=== PATIENT | female | born 1970 | race Caucasian/White ===

== ENCOUNTER 2016-07-05 12:01 | Outpatient (CLI) | END 2016-07-05 12:02 | disposition home or self-care (01) ==

== ENCOUNTER 2016-08-14 08:00 | Outpatient (CLI) | payer OTHER | END 2016-08-14 08:01 | disposition home or self-care (01) | DX: Z11.3 Encounter for screening for infections with a predominantly sexual mode of transmission (principal) ==

== ENCOUNTER 2016-10-04 19:41 | Outpatient (CLI) | payer OTHER ==
--- NOTE | 2016-10-05 12:48 | XRAY Report ---
SACRUM AND COCCYX: 10/04/2016 CLINICAL HISTORY: Pain. FINDINGS: BONES: Normal. No fractures or osseous lesions. JOINTS: Normal. The sacroiliac joints and visualized hips are in normal alignment. SOFT TISSUES: Normal. No swelling or radiopaque foreign body. IMPRESSION: NORMAL SACRUM AND COCCYX RADIOGRAPHY. JOB #: [id number] EXT JOB #:[id number]
== END 2016-10-04 23:59 | disposition home or self-care (01) ==
LOC: DI 19:41
PROVIDERS: ATTEND Family Medicine
DX: K59.4 Anal spasm (principal)
CPT/HCPCS: 72220

== ENCOUNTER 2016-11-09 13:26 | Outpatient (CLI) | payer OTHER ==
--- NOTE | 2016-11-10 17:11 | Mammography Report ---
DIGITAL SCREENING MAMMOGRAM: 11/09/2016 CLINICAL INDICATION: A 46-year-old with family history of breast cancer for screening. History of b ilateral reduction. COMPARISON: 01/2014, 06/2012 TECHNIQUE: Routine CC and MLO projections were obtained of the breasts. FINDINGS: The breasts again demonstrate heterogeneously dense fibroglandular parenchyma bilaterally. Postoperative changes are stable. A few punctate, typically benign calcifications are present. No suspicious masses, clustered microcalcifications, or regions of architectural distortion are identif ied. IMPRESSION: BENIGN FINDINGS. RECOMMENDATION: Routine annual screening unless otherwise clinically indicated. BIRADS CATEGORY 2 - BENIGN FINDINGS. STANDARD QUALIFYING STATEMENTS 1. This examination was reviewed with the aid of Computer-Aided Detection (CAD). 2. A negative or benign imaging report should not delay biopsy if clinically suspicious findings are present. Consider surgical consultation if warranted. More than 5% of cancers are not identified by i maging. 3. Dense breasts may obscure an underlying neoplasm. JOB #: [id number] EXT JOB #:[id number]
== END 2016-11-09 13:27 | disposition home or self-care (01) ==
LOC: DI 13:26
PROVIDERS: ATTEND Obstetrics & Gynecology
DX: Z12.31 Encounter for screening mammogram for malignant neoplasm of breast (principal); Z80.3 Family history of malignant neoplasm of breast
CPT/HCPCS: 77067

== ENCOUNTER 2016-12-29 14:40 | Outpatient (CLI) | payer OTHER ==
[2016-12-29 19:14] LABS: ALBUMIN/GLOBULIN RATIO 1.3 (1.0-2.2); BILIRUBIN,TOTAL 0.9 mg/dL (0.2-1.0); CALCIUM 8.8 mg/dL (8.5-10.3); CREATININE 0.8 mg/dL (0.4-1.0); POTASSIUM 3.5 mmol/L (3.5-5.0); TOTAL PROTEIN 6.9 g/dL (6.7-8.2)
[2016-12-29 19:16] LABS: BASOPHILS % (AUTO) 0.3 %; EOSINOPHILS % (AUTO) 0.8 %; HCT - HEMATOCRIT 42.6 % (37.0-47.0); HGB - HEMOGLOBIN 14.6 g/dL (12.0-16.0); LYMPHOCYTES # (AUTO) 1.9 10^3/uL (1.5-3.5); LYMPHOCYTES % (AUTO) 34.2 %; MEAN CORPUSCULAR HEMOGLOBIN 32.8 pg (27.0-31.0); MEAN CORPUSCULAR HGB CONC 34.2 g/dL (32.0-36.0); MEAN CORPUSCULAR VOLUME 95.9 fL (81.0-99.0); MEAN PLATELET VOLUME 8.8 fL (7.9-10.8); MONOCYTES # (AUTO) 0.6 10^3/uL (0.0-1.0); MONOCYTES % (AUTO) 10.8 %; NEUTROPHILS % (AUTO) 53.9 %; NUCLEATED RED BLOOD CELLS AUTO 0.2 /100WBC; RED BLOOD COUNT 4.45 10^6/uL (4.20-5.40); RED CELL DISTRIBUTION WIDTH 13.2 % (12.0-15.0); UNCORRECTED WHITE BLOOD COUNT 5.6 x10^3/uL; WHITE BLOOD COUNT 5.6 x10^3/uL (4.8-10.8)
== END 2016-12-29 14:41 | disposition home or self-care (01) ==
LOC: LAB.WCP 14:40
PROVIDERS: ATTEND Family Medicine
DX: R19.7 Diarrhea, unspecified (principal)
CPT/HCPCS: 36415; 80053; 85025

== ENCOUNTER 2017-01-15 12:30 | Outpatient (CLI) | payer OTHER ==
--- NOTE | 2017-01-15 14:27 | MRI Report ---
EXAM: MRI PELVIS WITHOUT CONTRAST EXAM DATE: 01/15/2017 01:22 PM. CLINICAL HISTORY: Coccydynia. COMPARISON: X-ray 10/04/2016. TECHNIQUE: Multiplanar, multisequence T1-weighted and fluid-sensitive sequences of the pelvis without contrast. Other: None. FINDINGS: Bones: There is fat signal intensity in the marrow of the coccyx and fifth sacral segment. There is n o marrow edema. Surrounding soft tissues appear normal. Lower Lumbar Spine: Unremarkable. Sacroiliac Joints: No effusion or sacroiliitis. Right Hip: No acetabular retroversion. Femoral head-neck offset is within normal limits. No effusion. Left Hip: No acetabular retroversion. Femoral head-neck offset is within normal limits. No effusion. Symphysis Pubis: Unremarkable. Musculature: No edema or fatty atrophy. Pelvic Cavity: The visualized bowel, bladder, and reproductive organs are unremarkable. No lymphadeno lexi. No free fluid in the pelvis. Other: The visualized sciatic nerves are unremarkable. No bursitis. The subcutaneous tissues are unre markable. IMPRESSION: 1. Fat signal intensity in the marrow of the S5 sacral segment and coccyx, without marrow edema or gonzalez rrounding soft tissue edema. 2. No significant abnormality in the remainder of the bony pelvis. [facility] MUSCULOSKELETAL RADIOLOGY SECTION Referring Provider Line: [phone] SITE ID: [id number]
== END 2017-01-15 12:31 | disposition home or self-care (01) ==
LOC: DI 12:30
PROVIDERS: ATTEND Family Medicine
DX: M53.3 Sacrococcygeal disorders, not elsewhere classified (principal)
CPT/HCPCS: 72195

== ENCOUNTER 2017-01-23 08:00 | Outpatient (CLI) | payer OTHER | END 2017-01-23 08:01 | disposition home or self-care (01) | LOC: LAB.R 08:00 | PROVIDERS: ATTEND Obstetrics & Gynecology | DX: Z11.3 Encounter for screening for infections with a predominantly sexual mode of transmission (principal) | CPT/HCPCS: 87491; 87591 ==

== ENCOUNTER 2017-01-23 09:29 | Outpatient (CLI) | payer OTHER | END 2017-01-23 09:30 | disposition home or self-care (01) | LOC: LAB 09:29 | PROVIDERS: ATTEND Obstetrics & Gynecology | DX: Z11.3 Encounter for screening for infections with a predominantly sexual mode of transmission (principal) | CPT/HCPCS: 36415; 86780; 87389; 87491; 87591 ==

== ENCOUNTER 2017-12-13 15:09 | Outpatient (CLI) | payer OTHER ==
--- NOTE | 2017-12-14 14:54 | Mammography Report ---
Procedure Date: 12/13/2017 Accession Number: [id number] / [id number] Procedure: [facility] - Screening Mammo Dig Bilat CPT Code: FULL RESULT: EXAM: Screening Mammo Dig Bilat DATE: 12/13/2017 3:31 PM CLINICAL HISTORY: 47-year-old with personal history of bilateral reduction, family history of breast cancer for screening TECHNIQUE: Bilateral CC and MLO views were obtained. COMPARISON: 11/09/2016, 02/10/2014, 07/01/2012 FINDINGS: The breasts demonstrate heterogeneously dense fibroglandular parenchyma bilaterally. Postoperative changes are stable. No suspicious masses, clustered microcalcifications, or regions of architectural distortion are identified. IMPRESSION: Benign findings RECOMMENDATION: Routine annual screening unless otherwise clinically indicated. BIRADS CATEGORY 2: Benign findings STANDARD QUALIFYING STATEMENTS: 1. This examination was reviewed with the aid of Computer-Aided Detection (CAD). 2. A negative or benign imaging report should not delay biopsy if clinically suspicious findings are present. Consider surgical consultation if warrented. More than 5% of cancers are not identified by imaging. 3. Dense breasts may obscure an underlying neoplasm.
== END 2017-12-13 15:10 | disposition home or self-care (01) ==
LOC: DI 15:09
PROVIDERS: ATTEND Nurse Practitioner Obstetrics & Gynecology
DX: Z12.39 Encounter for other screening for malignant neoplasm of breast (principal); Z80.3 Family history of malignant neoplasm of breast
CPT/HCPCS: 77067

== ENCOUNTER 2018-08-30 14:48 | Outpatient (CLI) | payer OTHER ==
--- NOTE | 2018-08-30 16:13 | XRAY Report ---
Reason: CONTUSION OF NOSE, INITIAL ENCOUNTER Procedure Date: 08/30/2018 Accession Number: [id number] / [id number] Procedure: WCP - Nasal Bones CPT Code: FULL RESULT: EXAM: NASAL BONES RADIOGRAPHY EXAM DATE: 08/30/2018 03:05 PM. CLINICAL HISTORY: Contusion of nose, initial encounter. COMPARISONS: None. TECHNIQUE: 3 views. FINDINGS: Bones: Apparent minimally displaced fracture of the nasal bone seen on both lateral views. No significant deviation on the Wagner' view. Sinuses: Normal. No opacities or fluid levels. Other: Normal. No soft tissue swelling. IMPRESSION: Minimally displaced nasal bone fractures. [facility]
== END 2018-08-30 14:49 | disposition home or self-care (01) ==
LOC: DI.WCP 14:48
PROVIDERS: ATTEND Family Medicine
DX: S02.2XXA Fracture of nasal bones, initial encounter for closed fracture (principal)
CPT/HCPCS: 70160

== ENCOUNTER 2018-09-24 08:00 | Outpatient (CLI) | payer OTHER | END 2018-09-24 23:59 | disposition home or self-care (01) | LOC: LAB.R 08:00 | PROVIDERS: ATTEND Nurse Practitioner Obstetrics & Gynecology | DX: B37.3 Candidiasis of vulva and vagina (principal) | CPT/HCPCS: 87480; 87510; 87660 ==

== ENCOUNTER 2019-07-30 09:00 | Outpatient (CLI) | payer OTHER ==
[2019-07-30 22:09] LABS: TRICHOMONAS VAGINALIS DNA NEGATIVE (NEGATIVE)
== END 2019-07-30 23:59 | disposition home or self-care (01) ==
LOC: LAB.R 09:00
PROVIDERS: ATTEND Nurse Practitioner Obstetrics & Gynecology
DX: Z11.3 Encounter for screening for infections with a predominantly sexual mode of transmission (principal)
CPT/HCPCS: 87491; 87591; 87661

== ENCOUNTER 2020-11-02 09:23 | Emergency (ER) | payer MEDICAID, OTHER ==
[2020-11-02] MEDS ORDERED: METOCLOPRAMIDE 10 MG/2 ML VIAL IVP STA (09:40)
--- NOTE | 2020-11-02 09:43 | ED Physician Documentation ---
PD HPI HEADACHE - Stated complaint Stated Complaint: HEADACHE - Chief complaint Chief Complaint: Neuro - History obtained from History obtained from: Patient - History of Present Illness Worst headache ever?: Worst headache ever? - Additional information Additional information: 10 days ago, last Sunday she was driving to get some chicken feed and developed relatively sudden onset diffuse headache that has been persistent ever since. It is worse if she lays on her right side. It is not associated with light sensitivity, nausea, neck stiffness, or fever. She has no history of headaches or migraines. She has tried Benadryl, THC gummy without relief. No recent dietary or lifestyle changes. 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, Breast reduction - Present Medications Home Medications: Ambulatory Orders Medication Instructions Recorded Confirmed Metoclopramide [Reglan] 10 mg PO Q6H PRN #20 tablet 11/02/20 - Allergies Allergies/Adverse Reactions: Allergies Allergy/AdvReac Type Severity Reaction Status Date / Time No Known Drug Allergies Allergy Verified 11/02/20 09:26 - Social History Does the pt smoke?: No Smoking Status: Never smoker Does the pt drink ETOH?: Yes Does the pt have substance abuse?: No - Immunizations Immunizations are current?: Yes PD ED PE NORMAL - Vitals Vital signs reviewed: Yes - General General: Alert and oriented X 3, No acute distress - HEENT HEENT: PERRL, EOMI - Neck Neck: Supple, no meningeal sign, No bony TTP, No bruit - Cardiac Cardiac: RRR, No murmur - Respiratory Respiratory: No respiratory distress, Clear bilaterally - Abdomen Abdomen: Non tender - Back Back: No CVA TTP, No spinal TTP - Derm Derm: Normal color, Warm and dry - Extremities Extremities: No edema, No calf tenderness / cord - Neuro Neuro: Alert and oriented X 3, 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, No motor deficit, No sensory deficit, Normal speech Results - Vitals Vitals: Vital Signs - 24 hr 11/02/20 11/02/20 09:27 10:30 Temperature 36.4 C L 36.2 C L Heart Rate 79 60 Respiratory 18 16 Rate Blood Pressure 115/65 102/65 O2 Saturation 100 100 Oxygen O2 Source Room air - Labs Labs: Laboratory Tests 11/02/20 11/02/20 11/02/20 09:50 09:50 09:50 WBC 6.3 RBC 4.61 Hgb 15.0 Hct 44.3 MCV 96.1 MCH 32.5 H MCHC 33.9 RDW 13.2 Plt Count 231 MPV 10.4 Neut # (Auto) 3.9 Lymph # (Auto) 1.9 [place] # (Auto) 0.4 Eos # (Auto) 0.1 Baso # (Auto) 0.0 Absolute Nucleated RBC 0.00 Nucleated RBC % 0.0 PT 11.3 INR 1.0 Sodium 144 Potassium 3.7 Chloride 106 Carbon Dioxide 29 Anion Gap 9.0 BUN 22 H Creatinine 0.8 Estimated GFR (MDRD) 76 L Glucose 105 H Calcium 9.3 PD MEDICAL DECISION MAKING - ED course ED course: 50-year-old woman presents with 10 days of headache. This is a new an acute phenomenon for her. CT angiography of the head is negative for blood or aneurysm. We discussed LP, but given the lack of aneurysm and history very inconsistent with meningitis, she declined after shared decision making. She will follow up with her physician and return for new or worsening symptoms. She did have fair relief with Reglan. Departure - Departure Disposition: 01 Home, Self Care Clinical Impression: Headache Qualifiers: Headache type: unspecified Headache chronicity pattern: acute headache Intractability: not intractable Qualified Code(s): R51.9 - Headache, unspecified Condition: Good Record reviewed to determine appropriate education?: Yes Instructions: ED Cephalgia Unspecified Prescriptions: Metoclopramide [Reglan] 10 mg PO Q6H PRN #20 tablet PRN Reason: nausea or headache Comments: Call your doctor to arrange a follow-up appointment, make the next available appointment. In the interim, return anytime if worse or if new symptoms develop.
[2020-11-02] MEDS ORDERED: IOPAMIDOL-300 100 ML VIAL ONE (09:45)
[2020-11-02 09:54] LABS: BASOPHILS % (AUTO) 0.3 %; EOSINOPHILS # (AUTO) 0.1 10^3/uL (0.0-0.7); EOSINOPHILS % (AUTO) 0.8 %; HCT - HEMATOCRIT 44.3 % (37.0-47.0); LYMPHOCYTES # (AUTO) 1.9 10^3/uL (1.5-3.5); LYMPHOCYTES % (AUTO) 30.3 %; MEAN CORPUSCULAR HEMOGLOBIN 32.5 pg (27.0-31.0); MEAN CORPUSCULAR HGB CONC 33.9 g/dL (32.0-36.0); MEAN CORPUSCULAR VOLUME 96.1 fL (81.0-99.0); MEAN PLATELET VOLUME 10.4 fL (7.9-10.8); MONOCYTES # (AUTO) 0.4 10^3/uL (0.0-1.0); MONOCYTES % (AUTO) 6.5 %; NEUTROPHILS # (AUTO) 3.9 10^3/uL (1.5-6.6); NEUTROPHILS % (AUTO) 61.9 %; PLT - PLATELET COUNT 231 10^3/uL (130-450); RED BLOOD COUNT 4.61 10^6/uL (4.20-5.40); RED CELL DISTRIBUTION WIDTH 13.2 % (12.0-15.0); WHITE BLOOD COUNT 6.3 x10^3/uL (4.8-10.8)
[2020-11-02 10:01] LABS: PT - PROTHROMBIN TIME 11.3 secs (9.9-12.6)
[2020-11-02 10:05] LABS: CALCIUM 9.3 mg/dL (8.5-10.3); CREATININE 0.8 mg/dL (0.4-1.0); POTASSIUM 3.7 mmol/L (3.5-5.0)
[2020-11-02] MEDS ORDERED: SODIUM CHLORIDE 0.9% 1,000 ML IV STA (10:09)
--- NOTE | 2020-11-02 10:44 | CT Report ---
PROCEDURE: ANGIO HEAD W/WO INDICATIONS: headache, WHOL CONTRAST: IV CONTRAST: Isovue 300 ml: 80 PO CONTRAST: *NO PO CONTRAST TECHNIQUE: Precontrast 4.5 mm thick angled axial sections acquired from the foramen magnum to the vertex. Afte r the administration of intravenous contrast, 1 mm thick sections acquired through the [place] is. Postcontrast 4.5 mm thick sections then re-acquired from the foramen magnum to the vertex. 3-di mensional ysinbye-dcyvwcevk-enzqijkldt (MIP) and/or volume rendering reformats were acquired of the c entral intracranial vasculature. For radiation dose reduction, the following was used: automated ex posure control, adjustment of mA and/or kV according to patient size. COMPARISON: None FINDINGS: Image quality: Excellent. Anterior circulation: Intracranial internal carotid arteries are normal in size and flow. The flow within the paired anterior cerebral arteries is normal and symmetric. The flow within the middle cer ebral arteries is normal and symmetric. The anterior communicating artery is seen. No aneurysms are seen. Posterior circulation: Visualized portions of the vertebral arteries demonstrate normal caliber, and join to form a normal appearing basilar artery. Flow within the posterior cerebral arteries is norm al and symmetric. No aneurysms are seen. CSF spaces: Ventricles are normal in size and shape. Basal cisterns are patent. No extra-axial flu id collections. Brain: No midline shift. No intracranial bleeds or masses. Shelley-white matter interface appears int act. Skull and face: Calvarium and facial bones appear intact, without suspicious lesions. Sinuses: Apparent mucous retention cyst is partially seen within the left maxillary sinus. Visualize d sinuses and mastoids are otherwise clear. IMPRESSION: No imaging explanation is found for the patient's presenting symptoms. No masses or abnormal enhancement can be seen. No intracranial hemorrhage is seen. No significant intracranial arterial abnormalities are seen. Reviewed by: Domingo Metcalf MD on 11/02/2020 9:42 AM JAYSON Approved by: Domingo Metcalf MD on 11/02/2020 9:42 AM JAYSON Station ID: [id number]
[2020-11-02] MEDS ORDERED: IOPAMIDOL-300 100 ML VIAL IVP ONE (11:07)
[2020-11-02 11:14] VITALS: BP 110/58
== END 2020-11-02 11:12 | disposition home or self-care (01) ==
LOC: ED 09:23
DX: R51.9 Headache, unspecified (principal)
CPT/HCPCS: 36415; 70496; 80048; 85025; 85610; 96374; 99284; J2765; Q9967

== ENCOUNTER 2020-11-17 08:00 | Outpatient (CLI) | payer MEDICAID | END 2020-11-17 23:59 | disposition home or self-care (01) | LOC: LAB.WCP 08:00 | PROVIDERS: ATTEND Family Medicine | DX: R51.9 Headache, unspecified (principal) | CPT/HCPCS: 36415; 86140 ==

== ENCOUNTER 2020-12-01 08:49 | Outpatient (CLI) | payer MEDICAID ==
[2020-12-01] MEDS ORDERED: GADOBUTROL 10 MMOL/10 ML VIAL ONE ×2 (09:02→09:25)
--- NOTE | 2020-12-01 10:31 | MRI Report ---
PROCEDURE: Brain W/WO INDICATIONS: HEADACHE CONTRAST: IV CONTRAST: Gadavist ml: 6.5 TECHNIQUE: Noncontrast axial T1 spin echo, axial T2 fast spin echo, sagittal and axial FLAIR, coronal T2 fast sp in echo, axial gradient echo, axial diffusion and ADC through the brain. After the administration of contrast, axial and coronal T1 spin echo with fat saturation through the brain. COMPARISON: CT angiogram of the head 11/02/2020 FINDINGS: Image quality: Excellent. CSF spaces: Basal cisterns are patent. No extra-axial fluid collections. Ventricles are normal in size and shape. Brain: No midline shift. No intracranial bleeds or masses. No abnormal intracranial enhancement. There is cerebral volume loss for age. There is periventricular white matter chronic small vessel is chemic change. The brainstem appears normal. Diffusion-weighted images demonstrate no acute ischemi c insults. No chronic ischemic insults. Normal intravascular flow voids are present. Skull and face: Calvarial marrow is normal in signal. Orbits appear normal. Sinuses: Mucous retention cyst in the left maxillary sinus. Remaining paranasal sinuses and mastoid a ir cells are predominantly clear. IMPRESSION: Essentially unremarkable MRI of the brain. No finding to explain headache. Reviewed by: Denny Cardenas MD on 12/01/2020 10:29 AM PDT Approved by: Denny Cardenas MD on 12/01/2020 10:29 AM PDT Station ID: [id number]
[2020-12-01] MEDS: GADOBUTROL 10 MMOL/10 ML VIAL IVP ONE (16:49)
== END 2020-12-01 08:50 | disposition home or self-care (01) ==
LOC: DI 08:49
PROVIDERS: ATTEND Family Medicine
DX: R51.9 Headache, unspecified (principal)
CPT/HCPCS: 70553; A9585

== ENCOUNTER 2021-04-28 13:52 | Outpatient (CLI) | payer MEDICAID ==
--- NOTE | 2021-04-29 09:11 | Mammography Report ---
BILATERAL DIGITAL SCREENING MAMMOGRAM 3D/2D: 04/28/2021 CLINICAL: Routine screening. Comparison is made to exams dated: 12/13/2017 mammogram, 11/09/2016 mammogram, and 02/10/2014 mammogram - [facility]. The tissue of both breasts is heterogeneously dense. This may lower the sensitivity of mammography. No significant masses, calcifications, or other findings are seen in either breast. There has been no significant interval change. IMPRESSION: NEGATIVE There is no mammographic evidence of malignancy. A 1 year screening mammogram is recommended. This exam was interpreted at Station ID: [id number]. NOTE: For mammograms, a report in lay terms will be sent to the patient. Approximately 15% of breast malignancies will not be visualized mammographically. In the management of a palpable breast mass, a negative mammogram must not discourage biopsy of a clinically suspicious lesion. Electronically Signed By: Ac Posada M.D. slc/penrad:04/28/2021 17:10:17 ACR BI-RADS Category 1: Negative 3341F PARENCHYMAL PATTERN: (D) - The breast(s) demonstrate(s) heterogeneously dense fibroglandular marisel vital. BI-RADS CATEGORY: (1) - 1 RECOMMENDATION: (ANNUAL) - Recommend routine annual screening mammography. [id number] 1 year screening LATERALITY: (B)
== END 2021-04-28 13:53 | disposition home or self-care (01) ==
LOC: DI 13:52
DX: Z12.31 Encounter for screening mammogram for malignant neoplasm of breast (principal)

== ENCOUNTER 2022-03-01 09:54 | Emergency (ER) | payer MEDICAID ==
[2022-03-01 10:06] VITALS: BP 129/79
[2022-03-01 10:40] LABS: BILIRUBIN,URINE NEGATIVE (NEGATIVE); GLUCOSE, URINE (UA) NEGATIVE (NEGATIVE); KETONES,URINE (UA) NEGATIVE (NEGATIVE); LEUKOCYTE ESTERASE, URINE SMALL (NEGATIVE); NITRITE,URINE NEGATIVE (NEGATIVE); OCCULT BLOOD,URINE LARGE (NEGATIVE); PROTEIN,URINE TRACE mg/dL (NEGATIVE); UROBILINOGEN,URINE 0.2 (NORMAL) E.U./dL (NORMAL)
[2022-03-01 10:41] LABS: CLARITY,URINE HAZY (CLEAR); HCG UR QUAL NEGATIVE
[2022-03-01 10:50] LABS: BACTERIA,URINE Few /HPF (None Seen); SQUAMOUS EPITHELIAL CELL,UR MANY Squamous (<= Few); WBC,URINE >25 /HPF (0-5)
--- NOTE | 2022-03-01 11:17 | ED Physician Documentation ---
PD HPI FEMALE - Stated complaint Stated Complaint: BLOOD IN URINE - Chief complaint Chief Complaint: UTI - History obtained from History obtained from: Patient - History of Present Illness Timing - onset: Last night Timing - duration: Days (1) Timing - details: Abrupt onset, Still present Associated symptoms: Fever (subjective during the night), Back pain (left). No: Vaginal discharge, Genital sore/lesion Contributing factors: No: Exposed to STD Similar symptoms before: Diagnosis (years ago UTI) Review of Systems Constitutional: reports: Chills, Myalgias Nose: denies: Rhinorrhea / runny nose, Congestion Throat: denies: Sore throat Respiratory: denies: Cough GI: reports: Nausea. denies: Abdominal Pain, Vomiting, Diarrhea : reports: Dysuria, Frequency, Hematuria. 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, Breast reduction - Present Medications Home Medications: Ambulatory Orders Medication Instructions Recorded Confirmed Metoclopramide [Reglan] 10 mg PO Q6H PRN #20 tablet 11/02/20 Phenazopyridine HCl [Pyridium] 100 mg PO TID PRN #15 tablet 03/01/22 Sulfamethox/Trimeth 800/160 1 each PO BID #14 tablet 03/01/22 [Bactrim Ds 800/160] - Allergies Allergies/Adverse Reactions: Allergies Allergy/AdvReac Type Severity Reaction Status Date / Time No Known Drug Allergies Allergy Verified 03/01/22 10:06 - Social History Does the pt smoke?: No Smoking Status: Never smoker Does the pt drink ETOH?: Yes Does the pt have substance abuse?: No - Immunizations Immunizations are current?: Yes PD ED PE NORMAL - Vitals Vital signs reviewed: Yes - General General: Alert and oriented X 3, No acute distress, Well developed/nourished - Abdomen Abdomen: Soft, Non tender - Female Female : Deferred - Rectal Rectal: Deferred - Back Back: No spinal TTP, Other (mild left CVA tender to percussion. ) - Derm Derm: Normal color, Warm and dry, No rash Results - Vitals Vitals: Oxygen O2 Source Room air - Labs Labs: Laboratory Tests 03/01/22 10:30 Urine Color LT. YELLOW Urine Clarity HAZY Urine pH 6.0 Ur Specific [place] 1.010 Urine Protein TRACE Urine Glucose (UA) NEGATIVE Urine Ketones NEGATIVE Urine Occult Blood LARGE H Urine Nitrite NEGATIVE Urine Bilirubin NEGATIVE Urine Urobilinogen 0.2 (NORMAL) Ur Leukocyte Esterase SMALL H Urine RBC 6-10 H Urine WBC >25 H Ur Squamous Epith Cells MANY Squamous H Urine Bacteria Few Ur Microscopic Review INDICATED Urine Culture Comments NOT INDICATED Urine HCG, Qual NEGATIVE PD MEDICAL DECISION MAKING - ED course Complexity details: reviewed results, considered differential (symptoms c/w UTI. ), d/w patient Departure - Departure Disposition: Home, Self Care Clinical Impression: Urinary tract infection Condition: Stable Record reviewed to determine appropriate education?: Yes Instructions: ED UTI Cystitis Female Prescriptions: Sulfamethox/Trimeth 800/160 [Bactrim Ds 800/160] 1 each PO BID #14 tablet Phenazopyridine HCl [Pyridium] 100 mg PO TID PRN #15 tablet PRN Reason: Abdominal Pain Comments: Your urine test is consistent with the urinary tract infection. Your symptoms sound likely more than just basic bladder infection but may be getting into the upper urinary tract. Bactrim DS antibiotic twice daily for a week. Pyridium if needed for urinary discomfort. Tylenol or ibuprofen for fevers pains and aches. I would anticipate improvement over the next several days. Return if worsening discomfort, repetitive vomiting, fevers, increased pain or other concerns. I transmitted your prescriptions to the [facility] pharmacy here in [facility]. Discharge Date/Time: 03/01/22 12:17
[2022-03-01] MEDS ORDERED: ACETAMINOPHEN 325 MG TABLET PO STA (11:32)
[2022-03-01] MEDS ORDERED: PHENAZOPYRIDINE 100 MG TABLET PO STA (11:32)
[2022-03-01] MEDS ORDERED: SULFAMETH/TRIMETH DS 800/160 MG TABLET PO STA (11:32)
== END 2022-03-01 12:17 | disposition home or self-care (01) ==
LOC: ED 09:54
DX: N39.0 Urinary tract infection, site not specified (principal)
CPT/HCPCS: 81001; 81025; 99282; 99283; A9270; 81003; 87086

== ENCOUNTER 2022-04-28 16:00 | Emergency (ER) | payer MEDICAID ==
[2022-04-28 16:06] VITALS: BP 133/75
--- NOTE | 2022-04-28 16:36 | ED Physician Documentation ---
PD HPI LOWER EXT INJURY - Stated complaint Stated Complaint: FALL/LEFT FOOT INJ - Chief complaint Chief Complaint: Trauma Ext - History obtained from History obtained from: Patient - History of Present Illness PD HPI LOW EXT INJURY LOCATION: Left, Foot Type of injury: Fall Where injury occurred: Home Timing - onset: Today Timing - duration: Hours (2) Timing - details: Abrupt onset Pain level max: 7 Pain level now: 5 Improved by: Rest, Ice, Immobilization Worsened by: Moving, Palpating Associated symptoms: Swelling, Discolored (bruising). 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: Yes Does the pt have substance abuse?: No - Immunizations Immunizations are current?: Yes PD ED PE NORMAL - Vitals Vital signs reviewed: Yes - General General: Alert and oriented X 3, No acute distress - HEENT HEENT: Atraumatic, PERRL, Moist mucous membranes - Neck Neck: Supple, no meningeal sign, No bony TTP - Cardiac Cardiac: RRR - Respiratory Respiratory: No respiratory distress, Clear bilaterally - Derm Derm: Warm and dry - Extremities Extremities: Other (Left foot - No tenderness over the ankle. No tenderness over the lateral medial malleolus. There is tenderness on the dorsum of the midfoot, more on the lateral side. No tenderness at the base of the fifth metatarsal. Neurovascular intact. Otherwise normal exam) - Neuro Neuro: Alert and oriented X 3 Results - Vitals Vitals: Vital Signs - 24 hr 04/28/22 16:03 Temperature 36.8 C Heart Rate 71 Respiratory 16 Rate Blood Pressure 133/75 H O2 Saturation 98 Oxygen O2 Source Room air - Rads (name of study) Left foot x-ray Radiology: Final report received, EMP read contemporaneously, See rad report Procedures - Splint (location) L leg Splint applied by: Physician, Surendra Type of splint: Short leg, Posterior Other: Patient tolerated well, No complications, Neurovascular intact, Crutches provided PD MEDICAL DECISION MAKING - ED course Complexity details: reviewed results, considered differential, d/w patient ED course: Patient with a looks like a small avulsion fracture of the anterior aspect of the calcaneus. Placed in a short leg posterior splint. Neurovascularly intact. We will have her follow-up with orthopedics for further care. Patient counseled regarding signs and symptoms for which I believe and urgent re- evaluation would be necessary. Patient with good understanding of and agreement to plan and is comfortable going home at this time This document was made in part using voice recognition software. While efforts are made to proofread this document, sound alike and grammatical errors may occur. We will keep her nonweightbearing until she sees orthopedics. IMPRESSION: Questionable small minimally displaced fracture lateral to the anterior calcaneus. Recommend correlation for point tenderness. CT or MRI could be performed for further evaluation if indicated clinically. Departure - Departure Disposition: 01 Home, Self Care Clinical Impression: Closed avulsion fracture of calcaneus Qualifiers: Encounter type: initial encounter Calcaneus location: tuberosity Fracture alignment: displaced Laterality: left Qualified Code(s): S92.032A - Displaced avulsion fracture of tuberosity of left calcaneus, initial encounter for closed fracture Condition: Good Instructions: ED Fx Foot Follow-Up: Orthopedic Care [Provider Group] - Within 1 week Prescriptions: HYDROcod/ACETAM 5/325 [[place] 5/325] 1 - 2 ea PO Q6H PRN #10 tablet PRN Reason: Pain Comments: Your prescriptions were sent to the [facility] pharmacy. Please follow-up with orthopedics for further care. Call on Sunday for an appointment next week. Return if you worsen. I am prescribing a short course of narcotic pain medication for you. These are potentially dangerous and addictive medications that should be used carefully. These medications may constipate you. Take an jdrd-tvb-cxqalex stool softener (docusate) twice daily with plenty of water while taking these medications. If you go 24 hours without a bowel movement, take sodx-yah-ehzwcji miralax, per package instructions. Do not drink or drive while taking these medications. If you received narcotic or sedating medications while in the emergency department, do not drive for 24 hours. Store this medication in a safe, secure place and out of reach of children. It is a violation of federal law to give or sell this medication to another person or to use in a manner other than prescribed. The ED will not refill narcotic prescriptions, including prescriptions lost or stolen. To dispose of unwanted medications: 1. [facility] at [address] in [place] has a medication drop box. They accept prescription medications (in pill form) Sunday through Sunday 9:00 a.m. to 5:00 p.m. 2. The [facility] accepts prescription medications (in pill form only) for disposal year round. Call for more information. 3. Contact the [facility] for the next [facility] sponsored prescription drug collection event. , [phone], or [phone]; FINDINGS: Bones: Tiny calcification lateral to the anterior process of the calcaneus could represent a tiny minimally displaced fracture fragment. Osseous structures are otherwise intact. No suspicious bony lesions. Posterior and plantar calcaneal enthesophytes are present. Soft tissues: Very mild soft tissue edema at the lateral hindfoot. IMPRESSION: Questionable small minimally displaced fracture lateral to the anterior ca lcaneus. Recommend correlation for point tenderness. CT or MRI could be performed for further evaluation if indicated clinically. Discharge Date/Time: 04/28/22 17:00
--- NOTE | 2022-04-28 16:42 | XRAY Report ---
PROCEDURE: Foot 3 View LT INDICATIONS: Trauma TECHNIQUE: 3 views of the foot were acquired. COMPARISON: None FINDINGS: Bones: Tiny calcification lateral to the anterior process of the calcaneus could represent a tiny min imally displaced fracture fragment. Osseous structures are otherwise intact. No suspicious bony lesio ns. Posterior and plantar calcaneal enthesophytes are present. Soft tissues: Very mild soft tissue edema at the lateral hindfoot. IMPRESSION: Questionable small minimally displaced fracture lateral to the anterior calcaneus. Recommend correlat ion for point tenderness. CT or MRI could be performed for further evaluation if indicated clinically . Reviewed by: Wilfredo Muñoz MD on 04/28/2022 4:41 PM PDT Approved by: Wilfredo Muñoz MD on 04/28/2022 4:41 PM PDT Station ID: [id number]
== END 2022-04-28 17:00 | disposition home or self-care (01) ==
LOC: ED 16:00
DX: S92.032A Displaced avulsion fracture of tuberosity of left calcaneus, initial encounter for closed fracture (principal); W18.30XA Fall on same level, unspecified, initial encounter; Y92.009 Unspecified place in unspecified non-institutional (private) residence as the place of occurrence of the external cause
CPT/HCPCS: 99283; 99284

== ENCOUNTER 2022-05-11 15:10 | Outpatient (CLI) | payer MEDICAID ==
--- NOTE | 2022-05-11 15:13 | XRAY Report ---
PROCEDURE: Calcaneus LT INDICATIONS: LEFT CALCANEUS PAIN TECHNIQUE: Two views of the calcaneus were acquired. COMPARISON: X-ray foot 04/28/2020 FINDINGS: Bones: No fractures or dislocations. No suspicious bony lesions. Soft tissues: No suspicious calcifications. Achilles tendon appears normal. IMPRESSION: No visualized acute fracture or dislocation. However, occult injury cannot be excluded. Recommend reba rt interval imaging follow-up in 7-10 days as clinically indicated for additional evaluation. Reviewed by: Lori Eubanks MD on 05/11/2022 3:11 PM PST Approved by: Lori Eubanks MD on 05/11/2022 3:11 PM PST Station ID: [id number]
== END 2022-05-11 15:11 | disposition home or self-care (01) ==
LOC: DI.WOS 15:10
PROVIDERS: ATTEND Orthopaedic Surgery
DX: M79.672 Pain in left foot (principal)

== ENCOUNTER 2022-06-12 14:44 | Outpatient (CLI) | payer MEDICAID ==
--- NOTE | 2022-06-12 16:54 | XRAY Report ---
PROCEDURE: Calcaneus LT INDICATIONS: LEFT CALCANEAL FRACTURE TECHNIQUE: Two views of the calcaneus were acquired. COMPARISON: X-ray left calcaneus, 05/11/2022. X-ray left foot, 04/28 2022. FINDINGS: Bones: No no acute or healing fractures or dislocations. No suspicious bony lesions. There is a sc lerotic intramedullary lesion in the distal tibia, compatible with an bone island. Calcaneal spurring . Soft tissues: No suspicious calcifications. Achilles tendon appears normal. IMPRESSION: No fracture is identified. the X-ray of the left foot dated 05/11/2022 showed a small osseous density lateral to anterior calcaneus. If clinically indicated, x-ray of the left foot would be helpful. Reviewed by: Avinash Shah MD on 06/12/2022 4:53 PM PST Approved by: Avinash Shah MD on 06/12/2022 4:53 PM PST Station ID: [id number]
== END 2022-06-12 14:45 | disposition home or self-care (01) ==
LOC: DI.WOS 14:44
PROVIDERS: ATTEND Orthopaedic Surgery
DX: S92.055A Nondisplaced other extraarticular fracture of left calcaneus, initial encounter for closed fracture (principal)

== ENCOUNTER 2023-11-01 11:22 | Outpatient (CLI) | payer OTHER ==
--- NOTE | 2023-11-01 12:32 | XRAY Report ---
PROCEDURE: Foot 3+V LT INDICATIONS: LEFT FOOT SPRAIN TECHNIQUE: 3 views of the foot were acquired. COMPARISON: 04/20/2022. FINDINGS: Bones: No fractures or dislocations. No suspicious bony lesions. Mild hallux valgus. Plantar and d orsal calcaneal enthesophyte. Soft tissues: No tibiotalar joint effusion. Achilles tendon appears normal. IMPRESSION: No acute bony abnormality. Degenerative changes of the first MTP and calcaneus. Reviewed by: Panchito Bowman MD on 11/01/2023 12:31 PM PDT Approved by: Panchito Bowman MD on 11/01/2023 12:31 PM PDT Station ID: [id number]
== END 2023-11-01 11:23 | disposition home or self-care (01) ==
LOC: DI 11:22
PROVIDERS: ATTEND Physician Assistant Medical
DX: M19.072 Primary osteoarthritis, left ankle and foot (principal)

== ENCOUNTER 2023-12-03 10:44 | Emergency (ER) | payer MEDICAID, OTHER ==
[2023-12-03 11:37] VITALS: O2SAT 100
--- NOTE | 2023-12-03 11:51 | ED Physician Documentation ---
PD HPI WOUND RECHECK - Stated complaint Stated Complaint: RT HAND REDNESS,SWELLING - Chief complaint Chief Complaint: Wound - Histroy obtained from History obtained from: Patient - Additional information Additional information: Otherwise healthy 53-year-old has developed atraumatic right index finger pain over the last few days with progressive swelling. She did have chills last night without clear fever. 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: Hysterectomy, Breast reduction - Present Medications Home Medications: Ambulatory Orders Medication Instructions Recorded Confirmed HYDROcod/ACETAM 5/325 [[place] 5/325] 1 - 2 ea PO Q6H PRN #10 tablet 04/28/22 Fluconazole 150 mg PO ONCE PRN #1 tablet 12/03/23 Sulfamethox/Trimeth 800/160 1 each PO BID #14 tablet 12/03/23 [Bactrim Ds 800/160] cephALEXin [Keflex] 500 mg PO Q6H #28 cap 12/03/23 - Allergies Allergies/Adverse Reactions: Allergies Allergy/AdvReac Type Severity Reaction Status Date / Time No Known Drug Allergies Allergy Verified 12/03/23 11:09 - Social History Does the pt smoke?: No Smoking Status: Never smoker Does the pt drink ETOH?: Yes Does the pt have substance abuse?: No - Immunizations Immunizations are current?: Yes - POLST Patient has POLST: No PD ED PE NORMAL - Vitals Vital signs reviewed: Yes - General General: Alert and oriented X 3, No acute distress - Extremities Extremities: Other (The right index finger is swollen especially over the palmar surface over the proximal phalanx. There is no obvious abscess. Although it is swollen, she does not have tenderness along the flexor tendon sheath of the palm, and is not holding it in flexion.) - Neuro Neuro: Alert and oriented X 3, Normal speech - Psych Psych: Normal mood, Normal affect Results - Vitals Vitals: Vital Signs - 24 hr 12/03/23 11:06 Temperature 36.6 C Heart Rate 93 Respiratory 20 Rate Blood Pressure 135/84 H O2 Saturation 100 Oxygen O2 Source Room air PD Medical Decision Making - ED course ED course: I think the worry here would be for early flexor tenosynovitis. She has a swollen digit but no other [place] sign at this point. Bedside ultrasound was used with water bath step-off and there is no abscess or fluid collection to drain. We will start her on antibiotics but she was given very close return precautions. Departure - Departure Disposition: Home, Self Care Clinical Impression: Finger infection Condition: Good Record reviewed to determine appropriate education?: Yes Instructions: ED Staph Infec Abx Tx Only Prescriptions: Sulfamethox/Trimeth 800/160 [Bactrim Ds 800/160] 1 each PO BID #14 tablet Fluconazole 150 mg PO ONCE PRN #1 tablet PRN Reason: yeast infection cephALEXin [Keflex] 500 mg PO Q6H #28 cap Comments: I sent your prescriptions electronically to the [facility] pharmacy here in [place]. 1 concern would be for an early case of what is called flexor tenosynovitis. Although you do not have the classic signs of that at this point I would like you to return anytime if worse and return here for wound check in approximately 48 hours if not improving. In addition to the antibiotics I did send a single time dose of fluconazole to the pharmacy as well to be used if you do develop a yeast infection on the antibiotics.
[2023-12-03] MEDS: cephALEXin 250 MG CAPSULE PO STA (11:54)
[2023-12-03] MEDS: SULFAMETH/TRIMETH DS 800/160 MG TABLET PO STA (11:54)
[2023-12-03 12:08] VITALS: BP 129/79
== END 2023-12-03 11:57 | disposition home or self-care (01) ==
LOC: ED 10:44
DX: L08.9 Local infection of the skin and subcutaneous tissue, unspecified (principal); Z79.899 Other long term (current) drug therapy
CPT/HCPCS: 99283; A9270

== ENCOUNTER 2023-12-06 19:31 | Emergency (ER) | payer MEDICAID ==
--- NOTE | 2023-12-06 19:46 | ED Physician Documentation ---
History of Present Illness - Stated complaint Stated Complaint: ALLERGIC REACTION - Chief complaint Chief Complaint: Allergic Rx - History obtained from History obtained from: Patient - Additonal information Additional information: I saw her on Sunday for what I thought was probably an early case of flexor tenosynovitis potentially of the right second digit. She was placed on Keflex and Bactrim. From that perspective she has had significant improvement. Not completely better, but mostly so. On and off since then she has felt weird. The first day after she started antibiotics she had nausea and progressively today she feels like she has trouble swallowing with some painless swelling inside the throat but normal phonation. She feels confused like she is having word finding difficulties and feels weak and wobbly in both legs. No symptoms that are really lateralizing. 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, Breast reduction - Present Medications Home Medications: Ambulatory Orders Medication Instructions Recorded Confirmed HYDROcod/ACETAM 5/325 [[place] 5/325] 1 - 2 ea PO Q6H PRN #10 tablet 04/28/22 Fluconazole 150 mg PO ONCE PRN #1 tablet 12/03/23 Sulfamethox/Trimeth 800/160 1 each PO BID #14 tablet 12/03/23 [Bactrim Ds 800/160] cephALEXin [Keflex] 500 mg PO Q6H #28 cap 12/03/23 clindamycin HCL [Cleocin HCl] 300 mg PO QID #28 cap 12/06/23 - Allergies Allergies/Adverse Reactions: Allergies Allergy/AdvReac Type Severity Reaction Status Date / Time No Known Drug Allergies Allergy Verified 12/06/23 19:34 - Social History Does the pt smoke?: No Smoking Status: Never smoker Does the pt drink ETOH?: Yes Does the pt have substance abuse?: No - Immunizations Immunizations are current?: Yes - POLST Patient has POLST: No PD ED PE NORMAL - Vitals Vital signs reviewed: Yes - General General: Alert and oriented X 3, Other (She appears anxious, but is phonating normally.) - HEENT HEENT: PERRL, EOMI, Other (Visualized portions of the oropharynx are unremarkable.) - Neck Neck: Supple, no meningeal sign, No bony TTP - Cardiac Cardiac: RRR, No murmur - Respiratory Respiratory: No respiratory distress, Clear bilaterally - Abdomen Abdomen: Non tender - Extremities Extremities: Other (Her right second finger is significantly improved from the other day. Still a bit swollen but much less so with significant improved redness.) - Neuro Neuro: Alert and oriented X 3, sourcing specialist 2-12 intact, No motor deficit (Peripheral strength in all 4 extremities is good), No sensory deficit Eye Opening: Spontaneous Motor: Obeys Commands Verbal: Oriented GCS Score: 15 Results - Vitals Vitals: Vital Signs - 24 hr 12/06/23 12/06/23 19:34 20:42 Temperature 36.8 C Heart Rate 112 H 72 Respiratory 20 16 Rate Blood Pressure 158/97 H 126/80 O2 Saturation 100 99 Oxygen O2 Source Room air - Labs Labs: Laboratory Tests 12/06/23 12/06/23 12/06/23 19:50 19:50 19:50 WBC 6.6 RBC 4.38 Hgb 13.8 Hct 40.3 MCV 92.0 MCH 31.5 H MCHC 34.2 RDW 12.9 Plt Count 282 MPV 10.2 Neut # (Auto) 4.1 Lymph # (Auto) 2.0 [place] # (Auto) 0.4 Eos # (Auto) 0.1 Baso # (Auto) 0.0 Absolute Nucleated RBC 0.00 Nucleated RBC % 0.0 VBG pH 7.480 H VBG pCO2 34.4 L VBG pO2 25.2 VBG HCO3 25.0 VBG Total CO2 26.1 VBG O2 Saturation 57.0 L VBG Base Excess 2.0 Sodium 137 Potassium 3.5 Chloride 101 Carbon Dioxide 26 Anion Gap 10.0 BUN 18 Creatinine 0.9 Estimated GFR (MDRD) 66 L Glucose 135 H Calcium 9.9 Total Bilirubin 0.5 AST 16 ALT 15 Alkaline Phosphatase 63 Total Protein 6.9 Albumin 4.6 Globulin 2.3 Albumin/Globulin Ratio 2.0 - Rads (name of study) CT and CT angiography of the head were negative save a cyst in the left maxillary sinus which the patient was already aware of. Relevant Findings:: Final report received, EMP independent interpretation of test PD Medical Decision Making - ED course Complexity details: reviewed results (CBC/VBG/CMP- nml expect resp alk c/w anxiety and mod hyperglycemia) ED course: She presents with nonspecific symptoms after starting keflex/bactrim for finger infection. She appears anxious but otherwise her exam is normal with NIHSS zero. Would be atypical for allergic rxn, but considered. Neuro issue also considered. 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 Given timecourse would presume med side effect and change to clind, she still needs abx, finger improved but not resolved. Departure - Departure Disposition: Home, Self Care Clinical Impression: Medication side effect, Weakness Condition: Good Record reviewed to determine appropriate education?: Yes Prescriptions: clindamycin HCL [Cleocin HCl] 300 mg PO QID #28 cap Comments: It is not completely clear what caused your symptoms tonight, given the time course 1 would presume it was one of the antibiotics, more likely the Bactrim than the cephalexin. That said reasonable to stop both and substitute the clindamycin, your finger is better but I still think you need to be on some antibiotics. Do not drink or drive tonight and take it easy tomorrow. Presume your symptoms will go away over the next day or so. Return in that timeframe if not improving. Anytime if worse. Forms: PCP List Discharge Date/Time: 12/06/23 22:35
[2023-12-06 19:54] LABS: BASOPHILS % (AUTO) 0.3 %; EOSINOPHILS # (AUTO) 0.1 10^3/uL (0.0-0.7); EOSINOPHILS % (AUTO) 0.9 %; HCT - HEMATOCRIT 40.3 % (37.0-47.0); HGB - HEMOGLOBIN 13.8 g/dL (12.0-16.0); LYMPHOCYTES % (AUTO) 30.3 %; MEAN CORPUSCULAR HEMOGLOBIN 31.5 pg (27.0-31.0); MEAN CORPUSCULAR HGB CONC 34.2 g/dL (32.0-36.0); MEAN PLATELET VOLUME 10.2 fL (7.9-10.8); MONOCYTES # (AUTO) 0.4 10^3/uL (0.0-1.0); MONOCYTES % (AUTO) 5.8 %; NEUTROPHILS # (AUTO) 4.1 10^3/uL (1.5-6.6); NEUTROPHILS % (AUTO) 62.5 %; PLT - PLATELET COUNT 282 10^3/uL (130-450); RED BLOOD COUNT 4.38 10^6/uL (4.20-5.40); RED CELL DISTRIBUTION WIDTH 12.9 % (12.0-15.0); VBG PCO2 34.4 mmHg (41-51); VBG PH 7.48 (7.31-7.41); VBG PO2 25.2 mmHg (25-47); WHITE BLOOD COUNT 6.6 x10^3/uL (4.8-10.8)
[2023-12-06 19:55] LABS: VBG TOTAL CO2 26.1 mmol/L (24-29)
[2023-12-06] MEDS ORDERED: iohexoL-300 100 ML VIAL ONE (20:04)
[2023-12-06 20:12] LABS: ALBUMIN 4.6 g/dL (3.2-5.5); BILIRUBIN,TOTAL 0.5 mg/dL (0.2-1.0); CALCIUM 9.9 mg/dL (8.5-10.3); CREATININE 0.9 mg/dL (0.6-1.3); POTASSIUM 3.5 mmol/L (3.5-4.5); TOTAL PROTEIN 6.9 g/dL (6.4-8.9)
[2023-12-06] MEDS: LORazepam 2 MG/ML VIAL IVP STA (20:22)
[2023-12-06 20:48] VITALS: BP 126/80; O2SAT 99
[2023-12-06] MEDS: iohexoL-300 100 ML VIAL IVP ONE (21:25)
--- NOTE | 2023-12-06 21:27 | CT Report ---
PROCEDURE: Head WO INDICATIONS: weakness TECHNIQUE: Noncontrast 4.5 mm thick angled axial sections acquired from the foramen magnum to the vertex. For r adiation dose reduction, the following was used: automated exposure control, adjustment of mA and/or kV according to patient size. COMPARISON: MRI of brain dated 12/01/2020. CT angiogram of the head dated 11/19. FINDINGS: Image quality: Excellent. CSF spaces: Basal cisterns are patent. No extra-axial fluid collections. Ventricles are normal in size and shape. Brain: No midline shift. No intracranial masses or hemorrhage. Shelley-white matter interface is norm al. Skull and face: Calvarium and visualized facial bones are intact, without suspicious lesions. Sinuses: Retention cyst versus mucocele is seen in left maxillary sinus. Bilateral mastoid air cells are well aerated. IMPRESSION: No acute intracranial pathology. Retention cyst versus mucocele in left maxillary sinus. Reviewed by: Pool Cramer MD on 12/06/2023 9:26 PM PDT Approved by: Pool Cramer MD on 12/06/2023 9:26 PM PDT Station ID: [id number]
--- NOTE | 2023-12-06 21:33 | CT Report ---
PROCEDURE: Angio Head/Neck INDICATIONS: weakness TECHNIQUE: After the administration of intravenous contrast, 1 mm thick sections acquired from the aortic arch t hrough the [place] of [place]. 3-dimensional rwqjqgh-gvqskpmxh-meezetyrat (MIP) and/or volume renderin g reformats were acquired of the central intracranial vasculature and neck separately. For radiation dose reduction, the following was used: automated exposure control, adjustment of mA and/or kV acco rding to patient size. CONTRAST: Omni 300, 80mls COMPARISON: CT angiogram of the head dated 11/02/2020. FINDINGS: Image quality: Diagnostic. HEAD CT: CSF Spaces: Basal cisterns are patent. No extra-axial fluid collections. Ventricles are normal in size and shape. Brain: No significant abnormality is seen for scanning technique. Skull and face: Calvarium and visualized facial bones appear intact, without suspicious lesions. Sinuses: Mucosal versus retention cyst in left maxillary sinus is seen. HEAD CT ANGIOGRAPHY: Anterior circulation: Intracranial internal carotid arteries are normal in size and flow. The flow within the paired anterior cerebral arteries is normal and symmetric. The flow within the middle cer ebral arteries is normal and symmetric. The anterior communicating artery is seen. No aneurysms are seen. Posterior circulation: Visualized portions of the vertebral arteries demonstrate normal caliber, and join to form a normal appearing basilar artery. Flow within the posterior cerebral arteries is norm al and symmetric. No aneurysms are seen. NECK CT ANGIOGRAPHY: Carotid system: The great vessels demonstrate a conventional anatomy as they arise from the aortic a rch. The origins of the common carotid arteries appear patent. The common carotid arteries demonstr ate normal caliber and courses. The bifurcation regions are both widely patent. The internal caroti d arteries demonstrate normal calibers and courses. Posterior circulation: The origins of the vertebral arteries both appear widely patent. The more gonzalez perior extracranial portions of both vertebral arteries also demonstrate normal courses and calibers. They join to form a normal appearing basilar artery. Soft tissues: Visualized neck soft tissues demonstrate no suspicious abnormalities. Bones: No suspicious bony lesions. Visualized cervical spine appears normally aligned. IMPRESSION: No significant intracranial arterial abnormality is seen. No significant abnormality is seen within the arteries of the neck. The estimate of stenosis included in the report of the imaging study was calculated using the NASCET method Reviewed by: Pool Jalloh MD on 12/06/2023 9:32 PM PDT Approved by: Pool Jalloh MD on 12/06/2023 9:32 PM PDT Station ID: [id number]
[2023-12-06] MEDS: CLINDAMYCIN 150 MG CAPSULE PO STA (22:23)
[2023-12-06] MEDS: LORazepam 1 MG TABLET PO STA (22:23)
== END 2023-12-06 22:35 | disposition home or self-care (01) ==
LOC: ED 19:31
DX: R13.10 Dysphagia, unspecified (principal); R41.0 Disorientation, unspecified; R53.1 Weakness; T50.905A Adverse effect of unspecified drugs, medicaments and biological substances, initial encounter; L08.89 Other specified local infections of the skin and subcutaneous tissue
CPT/HCPCS: 36415; 70450; 70496; 70498; 80053; 82803; 85025; 96374; 99284; A9270; J2060; J8499; Q9967

== ENCOUNTER 2024-01-28 20:36 | Emergency (ER) | payer MEDICAID, OTHER ==
[2024-01-28 20:54] VITALS: BP 143/94; O2SAT 100
--- NOTE | 2024-01-28 21:12 | ED Physician Documentation ---
PD HPI SKIN - Stated complaint Stated Complaint: LT FOOT INJ - Chief complaint Chief Complaint: Wound - Additional information Additional information: Trinidad Presents after stepping on a ally nail that went through the bottom of her shoe. She sustained a small puncture in the left foot. No other injuries. 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, Breast reduction - Present Medications Home Medications: Ambulatory Orders Medication Instructions Recorded Confirmed cephALEXin [Keflex] 500 mg PO Q6H #20 cap 01/28/24 - Allergies Allergies/Adverse Reactions: Allergies Allergy/AdvReac Type Severity Reaction Status Date / Time No Known Drug Allergies Allergy Verified 01/28/24 20:52 - Social History Does the pt smoke?: No Smoking Status: Never smoker Does the pt drink ETOH?: Yes Does the pt have substance abuse?: No - Immunizations Immunizations are current?: Yes - POLST Patient has POLST: No PD ED PE NORMAL - Vitals Vital signs reviewed: Yes - General General: Alert and oriented X 3, No acute distress - Back Back: No CVA TTP, No spinal TTP - Derm Derm: Normal color, Warm and dry, No rash, Other (. Pinpoint puncture left foot) Results - Vitals Vitals: Vital Signs - 24 hr 01/28/24 20:48 Temperature 36.5 C Heart Rate 69 Respiratory 18 Rate Blood Pressure 143/94 H O2 Saturation 100 Oxygen O2 Source Room air PD Medical Decision Making - ED course ED course: Patient presented after stepping on a nail and sustaining a small puncture to the left foot. She is requesting tetanus shot as she believes she is due for 1. She reports pinpoint puncture mathew, no bleeding no pain. She is not diabetic no signs of infection. We therefore we will give her updated Tdap here, she is based on home wound care instructions, and return if any signs of infection. I also prescribed Keflex to use only if signs of infection. Departure - Departure Disposition: 01 Home, Self Care Clinical Impression: Puncture wound of left foot Qualifiers: Encounter type: initial encounter Qualified Code(s): S91.332A - Puncture wound without foreign body, left foot, initial encounter Condition: Good Instructions: ED Wound Puncture General Prescriptions: cephALEXin [Keflex] 500 mg PO Q6H #20 cap Forms: PCP List
[2024-01-28] MEDS: TETANUS/DIPHTHERIA/PERTUSSIS 0.5 ML SYRINGE IM ONE (21:14)
== END 2024-01-28 21:25 | disposition home or self-care (01) ==
LOC: ED 20:36
DX: S91.332A Puncture wound without foreign body, left foot, initial encounter (principal); Z23 Encounter for immunization; W45.0XXA Nail entering through skin, initial encounter
CPT/HCPCS: 90471; 99283

== ENCOUNTER 2024-03-21 10:40 | Outpatient (CLI) | payer MEDICAID ==
[2024-03-21 11:19] LABS: BASOPHILS % (AUTO) 0.3 %; EOSINOPHILS # (AUTO) 0.1 10^3/uL (0.0-0.7); EOSINOPHILS % (AUTO) 1.6 %; HCT - HEMATOCRIT 41.2 % (37.0-47.0); HGB - HEMOGLOBIN 13.4 g/dL (12.0-16.0); LYMPHOCYTES # (AUTO) 2.3 10^3/uL (1.5-3.5); LYMPHOCYTES % (AUTO) 33.1 %; MEAN CORPUSCULAR HGB CONC 32.5 g/dL (32.0-36.0); MEAN CORPUSCULAR VOLUME 95.4 fL (81.0-99.0); MEAN PLATELET VOLUME 10.3 fL (7.9-10.8); MONOCYTES # (AUTO) 0.5 10^3/uL (0.0-1.0); MONOCYTES % (AUTO) 6.5 %; NEUTROPHILS # (AUTO) 4.1 10^3/uL (1.5-6.6); NEUTROPHILS % (AUTO) 58.2 %; PLT - PLATELET COUNT 207 10^3/uL (130-450); RED BLOOD COUNT 4.32 10^6/uL (4.20-5.40); RED CELL DISTRIBUTION WIDTH 13.5 % (12.0-15.0); WHITE BLOOD COUNT 7.1 x10^3/uL (4.8-10.8)
[2024-03-21 13:34] LABS: RHEUMATOID FACTOR NEGATIVE (Negative)
--- NOTE | 2024-03-21 13:50 | XRAY Report ---
PROCEDURE: Wrist 1-2V LT INDICATIONS: LEFT WRIST PAIN TECHNIQUE: 2 views of the wrist were acquired. COMPARISON: None. FINDINGS: Bones: No acute fractures or dislocations. Well-corticated fragment adjacent to base of first metaca rpal bone likely represent remote injury. No suspicious bony lesions. Soft tissues: No suspicious soft tissue calcifications or masses. IMPRESSION: No acute wrist fracture or dislocation. Likely old injury involving base of first metacarpal bone. Reviewed by: Pool Cramer MD on 03/21/2024 1:49 PM PDT Approved by: Pool Cramer MD on 03/21/2024 1:49 PM PDT Station ID: [id number]
--- NOTE | 2024-03-21 13:57 | XRAY Report ---
PROCEDURE: Hand 1-2V RT INDICATIONS: RIGHT HAND PAIN TECHNIQUE: 2 views of the hand(s) acquired. COMPARISON: None. FINDINGS: Bones: No fractures or dislocations. No suspicious bony lesions. Soft tissues: No suspicious soft tissue calcifications or masses. IMPRESSION: No acute right hip fracture or dislocation. No suspicious bony lesions. No gross bony erosive changes . Reviewed by: Pool Cramer MD on 03/21/2024 1:56 PM PDT Approved by: Pool Cramer MD on 03/21/2024 1:56 PM PDT Station ID: [id number]
== END 2024-03-21 10:41 | disposition home or self-care (01) ==
LOC: DI 10:40
PROVIDERS: ATTEND Nurse Practitioner Family
DX: M25.532 Pain in left wrist (principal); M25.541 Pain in joints of right hand; M25.50 Pain in unspecified joint
CPT/HCPCS: 36415; 85025; 85651; 86038; 86141; 86430